=== PATIENT | male | born 1975 | race Two or more races ===

== ENCOUNTER 2022-10-16 11:26 | Emergency (ER) | payer MEDICAID ==
[~2022-10-16] VITALS: Ht 167.6 cm; Wt 72.6 kg
[2022-10-16 11:49] VITALS: BP 142/91
--- NOTE | 2022-10-16 11:50 | NUR ---
tech at bedside fpr wound care
[2022-10-16] MEDS ORDERED: BACI/NEOM/POLY B OINT PKT 1 UDPKT PACKET TP ONE (12:00)
--- NOTE | 2022-10-16 12:12 | NUR ---
Patient discharged to home in stable condition. Written and verbal after care instructions given. Patient verbalizes understanding of instruction.
== END 2022-10-16 12:13 | disposition home or self-care (01) ==
LOC: ER 11:47
DX: S62.614D Displaced fracture of proximal phalanx of right ring finger, subsequent encounter for fracture with routine healing (principal); S61.214D Laceration without foreign body of right ring finger without damage to nail, subsequent encounter; I10 Essential (primary) hypertension; X58.XXXD Exposure to other specified factors, subsequent encounter
CPT/HCPCS: 99283; 29130; A6403